=== PATIENT | male | born 1955 | race Caucasian/White ===

== ENCOUNTER → 2021-05-13 | Outpatient (CLI) | payer OTHER | LOC: RAD 15:41 | DX: U07.1 COVID-19 (principal) ==

== ENCOUNTER → 2021-05-15 | Outpatient (CLI) | payer OTHER ==
[~2021-05-15] VITALS: Ht 185.4 cm; Wt 154.5 kg
[2021-05-15] VITALS (7 sets, daily range): BP systolic 121–134; BP diastolic 77–87
== END ==
LOC: AMSURD 11:11
DX: U07.1 COVID-19 (principal); E66.9 Obesity, unspecified; J98.4 Other disorders of lung
CPT/HCPCS: M0247; Q0247

== ENCOUNTER → 2023-06-02 | Outpatient (CLI) | payer MEDICARE | LOC: RAD 09:00 | DX: I10 Essential (primary) hypertension (principal); Z86.73 Personal history of transient ischemic attack (TIA), and cerebral infarction without residual deficits ==